=== PATIENT | female | born 1945 | race Caucasian/White ===

== ENCOUNTER 2019-07-09 17:14 | Emergency (ER) | payer OTHER ==
[~2019-07-09] VITALS: Ht 152.4 cm; Wt 104.3 kg
[~2019-07-09 17:14] MED LIST: ALENDRONATE SOD10 MG PO; ALLEGRA ALLERG180 MG PO; ASPIR 8181 MG PO; CALCIUM 500 +1 EAC5 PO; CARTIA XT120 M1 PO; CIPRO500 MG PO; FLAGYL500 MG PO; HYDROCODON-ACE1 EAC7 PO; KLOR-CON 1010 MEQ PO; LASIX 40 MG TAB40 M2 PO; LIORESAL 10 MG10 MG PO; LISINOPRIL10 MG PO; MIRAPEX0.125 MG PO; OXYCONTIN10 M1 PO; PERCOCET PO; PRAVACHOL20 MG PO; REFRESH CLASSI1 EACH OP; SERTRALINE HCL50 MG PO
[2019-07-09 17:48] LABS: ABSOLUTE BASOPHILS 0.1 thou/uL (0.0-0.2); ABSOLUTE EOSINOPHILS 0.3 thou/uL (0.0-0.7); ABSOLUTE LYMPHOCYTES 1.4 thou/uL (0.8-5.3); ABSOLUTE MONOCYTES 0.5 thou/uL (0.0-1.2); ABSOLUTE NEUTROPHILS 6.2 thou/uL (1.6-8.1); BASOPHILS 0.8 %; EOSINOPHILS 4.1 %; HEMATOCRIT 39.8 % (37.0-47.0); HEMOGLOBIN 13.5 gm/dL (12.0-15.0); LYMPHOCYTES 16.4 %; MCHC 33.8 g/dL (28.0-37.0); MCV 88.5 fL (80.0-100.0); MONOCYTES 6.3 %; MPV 8.3 fl. (7.2-11.1); NUCLEATED RBCS 0 /100WBC; PLATELET COUNT* 219 thou/uL (150-400); POLYS 72.4 %; RBC 4.49 mil/uL (4.20-5.00); RDW-CV 13.4 % (10.5-14.5); WBC 8.6 thou/uL (4.0-11.0)
[2019-07-09 17:56] LABS: CALCIUM 9.3 mg/dL (8.5-10.1); CREATININE 1.2 mg/dL (0.6-1.3); POTASSIUM 3.9 mmol/L (3.5-5.1)
[2019-07-09 18:07] LABS: ALBUMIN 3.4 g/dL (3.4-5.0); TOTAL BILIRUBIN 0.3 mg/dL (<0.1-1.0); TOTAL PROTEIN 7.2 g/dL (6.4-8.2)
[2019-07-09] MEDS ORDERED: LASIX 20 MG TAB20 MG PO (18:39)
[2019-07-09 19:12] VITALS: BP 137/57
--- NOTE | 2019-07-10 10:35 | EKG ---
[place] [address] ELECTROCARDIOGRAM REPORT Name: BRINA GRAVES Room: [facility]#: [id number] Admission: 07/09/19 Attend Phys: Discharge: 07/09/19 Date of : 47 Report #: [id number] THIS REPORT FOR: //name// [facility] ED Test Date: 2019-07-09 Test Time: 17:42:21 Pat Name: BRINA VLADISLAV MALIK Department: Room: Gender: F [employer]rentice: : 1945 Requested By: Jarad Nelson Order Number: [id number] MD: Xu Sherman Measurements Intervals [place] Rate: 72 P: 57 RI: 163 QRS: 36 QRSD: 112 T: 31 QT: 408 QTc: 447 Interpretive Statements Sinus rhythm Borderline intraventricular conduction delay Low voltage, precordial leads No previous ECG available for comparison Electronically Signed On 07-10-2019 10:35:41 [employer] by Xu Sherman [email or web address] <ELECTRONICALLY SIGNED> By: Xu Sherman MD, [facility] 07/10/19 1035 [id number] 41 Xu Sherman MD, FACC /EPI
== END 2019-07-09 19:13 | disposition home or self-care (01) ==
LOC: M.ERS 17:14
PROVIDERS: Emergency Medicine
DX: S90.32XA Contusion of left foot, initial encounter (principal); R60.0 Localized edema; I10 Essential (primary) hypertension; E78.00 Pure hypercholesterolemia, unspecified; Z85.3 Personal history of malignant neoplasm of breast; Z98.890 Other specified postprocedural states; Z88.5 Allergy status to narcotic agent; X58.XXXA Exposure to other specified factors, initial encounter; Y92.89 Other specified places as the place of occurrence of the external cause; Y93.89 Activity, other specified; Y99.8 Other external cause status

== ENCOUNTER 2020-07-01 10:01 | Emergency (ER) | payer OTHER ==
[~2020-07-01] VITALS: Ht 152.4 cm; Wt 95.3 kg
[~2020-07-01 10:01] MED LIST changes: +LASIX 20 MG TAB20 MG PO
[2020-07-01 10:34] LABS: ABSOLUTE EOSINOPHILS 0.2 thou/uL (0.0-0.7); ABSOLUTE LYMPHOCYTES 0.7 thou/uL (0.8-5.3); ABSOLUTE MONOCYTES 0.5 thou/uL (0.0-1.2); ABSOLUTE NEUTROPHILS 4.8 thou/uL (1.6-8.1); BASOPHILS 0.5 %; HEMATOCRIT 42.2 % (37.0-47.0); HEMOGLOBIN 14.1 gm/dL (12.0-15.0); LYMPHOCYTES 11.4 %; MCH 28.9 pg (26.0-34.0); MCHC 33.5 g/dL (28.0-37.0); MCV 86.3 fL (80.0-100.0); MONOCYTES 8.1 %; NUCLEATED RBCS 0 /100WBC; PLATELET COUNT* 206 thou/uL (150-400); RBC 4.89 mil/uL (4.20-5.00); RDW-CV 13.3 % (10.5-14.5); WBC 6.2 thou/uL (4.0-11.0)
[2020-07-01 10:38] LABS: CALCIUM 9.5 mg/dL (8.5-10.1)
[2020-07-01 10:43] LABS: ALBUMIN 3.8 g/dL (3.4-5.0); TOTAL BILIRUBIN 0.5 mg/dL (<0.1-1.0); TOTAL PROTEIN 7.5 g/dL (6.4-8.2)
[2020-07-01] MEDS ORDERED: NEURONTIN100 MG PO (10:49)
[2020-07-01] MEDS ORDERED: TIZANIDINE HCL4 M1 PO (10:50)
[2020-07-01] MEDS ORDERED: OTEZLA30 MG PO (10:50)
[2020-07-01] MEDS ORDERED: CLOBETASOL EMOL15 GM TOP (10:52)
[2020-07-01] MEDS ORDERED: KLOR-CON 10 ER10 MEQ PO (10:53)
[2020-07-01 12:11] VITALS: BP 122/77
== END 2020-07-01 12:11 | disposition home or self-care (01) ==
LOC: M.ERS 10:01
PROVIDERS: Family Medicine
DX: G89.29 Other chronic pain (principal); M54.2 Cervicalgia; M25.511 Pain in right shoulder; M79.631 Pain in right forearm; I10 Essential (primary) hypertension; E78.00 Pure hypercholesterolemia, unspecified; Z85.3 Personal history of malignant neoplasm of breast; Z88.5 Allergy status to narcotic agent